=== PATIENT | female | born 1950 | race Caucasian/White ===

== ENCOUNTER 2018-03-21 16:51 | Inpatient (IN) | payer MEDICARE, OTHER ==
[~2018-03-21] VITALS: Ht 162.6 cm; Wt 91.6 kg
[~2018-03-21 16:51] MED LIST: ATOR20TA65 PO; CETI-290 PO; DOCU50LI12 PO; FAMO10TA99 PO; HYDR-4069 PO; LISI-660 PO; MIRT7.5T11 PO; PANT40TA25 PO; RIVA10 PO
[2018-03-21 17:17] VITALS: BP 154/73
[2018-03-21] MEDS ORDERED: ACETAMINOPHEN 325 MG TABLET PO PRN (19:00)
[2018-03-21] MEDS ORDERED: IPRATROPIUM BROMIDE 0.5 MG/2.5 ML NEB SOLUTION NEB PRN (19:00)
[2018-03-21] MEDS ORDERED: ONDANSETRON HCL 4 MG/2 ML VIAL IVP PRN (19:00)
[2018-03-21] MEDS ORDERED: ALBUTEROL SULFATE 2.5 MG/0.5 ML NEB SOLUTION NEB PRN (19:00)
[2018-03-21] MEDS ORDERED: BISACODYL 10 MG RECTAL RECTAL SUPPOSITORY PR PRN (19:00)
[2018-03-21] MEDS ORDERED: MAGNESIUM HYDROXIDE SUSPENSION 30 ML UDCUP PO PRN (19:00)
[2018-03-21] MEDS ORDERED: ZOLPIDEM TARTRATE 5 MG TABLET PO PRN (19:00)
[2018-03-21] MEDS ORDERED: MORPHINE SULFATE 4 MG/ML SYRINGE IVP PRN (19:00)
[2018-03-21] MEDS ORDERED: BARIUM SULFATE 0.1% SUSPENSION 450 ML BOTTLE ONE (19:30)
[2018-03-21 19:38] VITALS: BP 116/61
[2018-03-21 19:44] LABS: BASOPHILS % (AUTO) 1.1 % (0.0-2.0); EOSINOPHILS % (AUTO) 2.6 % (1.0-6.0); HEMATOCRIT 40.6 % (36-46); LYMPHOCYTES # (AUTO) 3.5 K/uL (1.0-4.8); MEAN CORPUSCULAR HEMOGLOBIN 31.4 pg (26.0-34.0); MEAN CORPUSCULAR HGB CONC 34.4 G/dL (31.0-37.0); MEAN CORPUSCULAR VOLUME 91 fL (80-100); MONOCYTES # (AUTO) 1.1 K/uL (0.1-1.0); MONOCYTES % (AUTO) 7.7 % (2.0-9.0); NEUTROPHILS # (AUTO) 8.8 K/uL (1.8-7.7); NEUTROPHILS % (AUTO) 63.6 % (40.0-70.0); PLATELET COUNT (AUTO) 297 K/uL (150-450); RED BLOOD CELL COUNT(AUTO) 4.45 MIL/uL (4.00-5.20); RED CELL DISTRIBUTION WIDTH 13.5 % (11.5-14.5)
[2018-03-21 19:50] LABS: ANION GAP 9 mmol/L (8-16); CALCIUM, TOTAL 8.8 mg/dL (8.8-10.5); CARBON DIOXIDE 26 mmol/L (22-29); CHLORIDE 105 mmol/L (98-107); CREATININE 0.92 mg/dL (0.60-1.30); GLOMERULAR FILTR. RATE CALC > 60 mL/min (>60); GLUCOSE,RANDOM 122 mg/dL (70-110); POTASSIUM 3.2 mmol/L (3.5-5.1); SODIUM SERUM 140 mmol/L (136-145); UREA NITROGEN, BLOOD 20 mg/dL (7-18)
[2018-03-21 19:55] LABS: ALANINE AMINOTRANSFERASE 29 U/L (12-78); ALBUMIN 3.4 g/dL (3.4-5.0); ALKALINE PHOSPHATASE 124 U/L (46-116); ASPARTATE AMINOTRANSFERASE 19 U/L (15-37); BILIRUBIN,TOTAL 0.5 mg/dL (0.1-1.0); TOTAL PROTEIN, SERUM 6.9 g/dL (6.4-8.2)
[2018-03-21] MEDS: DOCUSATE SODIUM 100 MG CAPSULE PO SCH (20:26)
[2018-03-21] MEDS: MIRTAZAPINE 15 MG TABLET PO SCH (20:26)
[2018-03-21 23:54] VITALS: BP 136/68
[2018-03-22] MEDS ORDERED: HEPARIN SODIUM,PORCINE 5,000 UNITS/ML VIAL SQ SCH
[2018-03-22] MEDS ORDERED: IOVERSOL 320 MG/ML 50 ML VIAL ONE (01:47)
[2018-03-22] MEDS ORDERED: SODIUM CHLORIDE 0.9% 100 ML ONE (01:47)
[2018-03-22] MEDS ORDERED: IOVERSOL 320 MG/ML 100 ML VIAL ONE (01:47)
[2018-03-22 04:45] VITALS: BP 112/82
[2018-03-22] MEDS: PANTOPRAZOLE SODIUM 40 MG DR TABLET PO SCH (05:58)
[2018-03-22 06:54] LABS: BASOPHILS % (AUTO) 0.7 % (0.0-2.0); EOSINOPHILS % (AUTO) 3.7 % (1.0-6.0); HEMATOCRIT 39.8 % (36-46); HEMOGLOBIN 13.7 g/dL (12.0-16.0); LYMPHOCYTES # (AUTO) 3.1 K/uL (1.0-4.8); MEAN CORPUSCULAR HEMOGLOBIN 31.6 pg (26.0-34.0); MEAN CORPUSCULAR HGB CONC 34.5 G/dL (31.0-37.0); MEAN CORPUSCULAR VOLUME 92 fL (80-100); MONOCYTES # (AUTO) 1.3 K/uL (0.1-1.0); MONOCYTES % (AUTO) 11.4 % (2.0-9.0); NEUTROPHILS # (AUTO) 6.6 K/uL (1.8-7.7); NEUTROPHILS % (AUTO) 57.2 % (40.0-70.0); PLATELET COUNT (AUTO) 268 K/uL (150-450); RED BLOOD CELL COUNT(AUTO) 4.35 MIL/uL (4.00-5.20); RED CELL DISTRIBUTION WIDTH 13.8 % (11.5-14.5)
[2018-03-22 07:08] LABS: ANION GAP 9 mmol/L (8-16); CALCIUM, TOTAL 8.4 mg/dL (8.8-10.5); CARBON DIOXIDE 24 mmol/L (22-29); CHLORIDE 108 mmol/L (98-107); CREATININE 0.67 mg/dL (0.60-1.30); GLOMERULAR FILTR. RATE CALC > 60 mL/min (>60); GLUCOSE,RANDOM 86 mg/dL (70-110); POTASSIUM 3.3 mmol/L (3.5-5.1); SODIUM SERUM 141 mmol/L (136-145); UREA NITROGEN, BLOOD 14 mg/dL (7-18)
[2018-03-22] MEDS: LISINOPRIL 5 MG TABLET PO SCH (07:50)
[2018-03-22] MEDS: FAMOTIDINE 20 MG TABLET PO SCH (07:50)
[2018-03-22] MEDS: ATORVASTATIN CALCIUM 20 MG TABLET PO SCH (07:50)
[2018-03-22] MEDS: DOCUSATE SODIUM 100 MG CAPSULE PO SCH ×3 (07:50→21:02)
[2018-03-22] MEDS: CETIRIZINE HCL 10 MG TABLET PO SCH (07:51)
[2018-03-22 07:54] VITALS: BP 156/53
[2018-03-22] MEDS ORDERED: PANTOPRAZOLE SODIUM 40 MG/VIAL IVP SCH (09:00)
[2018-03-22 11:39] VITALS: BP 111/67
[2018-03-22] MEDS: HYDROCODONE/ACETAMINOPHEN 5-325 MG TABLET PO PRN ×2 (15:49→21:05)
[2018-03-22 16:21] VITALS: BP 141/67
[2018-03-22 17:48] LABS: APPEARANCE,URINE CLEAR (CLEAR); BILIRUBIN,URINE NEGATIVE (NEGATIVE); GLUCOSE, URINE (UA) NEGATIVE (NEGATIVE); KETONES,URINE NEGATIVE (NEGATIVE); LEUKOCYTE ESTERASE ,URINE NEGATIVE (NEGATIVE); NITRATE,URINE NEGATIVE (NEGATIVE); OCCULT BLOOD,URINE MODERATE (NEGATIVE); PH,URINE 5.5 (5.0-8.0); PROTEIN,URINE NEGATIVE (NEGATIVE); UROBILINOGEN,URINE 0.2 mg/dL (<=1.0)
[2018-03-22 17:51] LABS: BACTERIA,URINE Rare /HPF (None Seen); SQUAMOUS EPITHELIAL CELL,UR Few /LPF (None Seen)
[2018-03-22] MEDS ORDERED: POTASSIUM CHLORIDE 20 MEQ ER TABLET PO PRN (18:00)
[2018-03-22] MEDS ORDERED: MAGNESIUM SULFATE 2 GM in DEXTROSE 5%-WATER 50 ML IV PRN (18:00)
[2018-03-22] MEDS ORDERED: POTASSIUM CHL 10 MEQ/WATER 50 ML IV PRN (18:00)
[2018-03-22] MEDS ORDERED: MAGNESIUM OXIDE 400 MG TABLET PO PRN (18:00)
[2018-03-22] MEDS ORDERED: MAGNESIUM SULFATE 4 GM/WATER 100 ML IV PRN (18:00)
[2018-03-22] MEDS: RIVAROXABAN 10 MG TABLET PO SCH (18:11)
[2018-03-22 19:12] LABS: ALBUMIN 3.1 g/dL (3.4-5.0)
[2018-03-22 19:40] VITALS: BP 109/55
[2018-03-22] MEDS: MIRTAZAPINE 15 MG TABLET PO SCH (21:02)
[2018-03-22 23:32] VITALS: BP 108/53
[2018-03-23 04:46] VITALS: BP 108/60
[2018-03-23] MEDS: PANTOPRAZOLE SODIUM 40 MG DR TABLET PO SCH (06:42)
[2018-03-23 07:06] LABS: MAGNESIUM 1.8 mg/dL (1.80-2.40)
[2018-03-23 07:20] VITALS: BP 104/50
[2018-03-23] MEDS: ATORVASTATIN CALCIUM 20 MG TABLET PO SCH (08:49)
[2018-03-23] MEDS: LISINOPRIL 5 MG TABLET PO SCH (08:49)
[2018-03-23] MEDS: FAMOTIDINE 20 MG TABLET PO SCH (08:49)
[2018-03-23] MEDS: CETIRIZINE HCL 10 MG TABLET PO SCH (08:49)
[2018-03-23] MEDS: HYDROCODONE/ACETAMINOPHEN 5-325 MG TABLET PO PRN ×3 (08:49→20:37)
[2018-03-23] MEDS: DOCUSATE SODIUM 100 MG CAPSULE PO SCH ×2 (08:50→20:43)
[2018-03-23 11:28] VITALS: BP 101/58
[2018-03-23 16:28] VITALS: BP 101/51
[2018-03-23] MEDS: RIVAROXABAN 10 MG TABLET PO SCH (18:19)
[2018-03-23 20:01] VITALS: BP 131/49
[2018-03-23] MEDS: MIRTAZAPINE 15 MG TABLET PO SCH (20:37)
[2018-03-23 23:25] VITALS: BP 111/65
[2018-03-24 03:20] VITALS: BP 121/56
[2018-03-24] MEDS: PANTOPRAZOLE SODIUM 40 MG DR TABLET PO SCH (06:17)
[2018-03-24 08:00] VITALS: BP 145/75
[2018-03-24] MEDS: LISINOPRIL 5 MG TABLET PO SCH (08:13)
[2018-03-24] MEDS: FAMOTIDINE 20 MG TABLET PO SCH (08:13)
[2018-03-24] MEDS: DOCUSATE SODIUM 100 MG CAPSULE PO SCH ×2 (08:13→20:29)
[2018-03-24] MEDS: ATORVASTATIN CALCIUM 20 MG TABLET PO SCH (08:13)
[2018-03-24] MEDS: CETIRIZINE HCL 10 MG TABLET PO SCH (08:14)
[2018-03-24] MEDS: HYDROCODONE/ACETAMINOPHEN 5-325 MG TABLET PO PRN ×2 (11:31→20:30)
[2018-03-24 11:42] VITALS: BP 128/50
[2018-03-24 15:54] VITALS: BP 107/41
[2018-03-24] MEDS: RIVAROXABAN 10 MG TABLET PO SCH (17:50)
[2018-03-24 19:35] VITALS: BP 104/55
[2018-03-24] MEDS: MIRTAZAPINE 15 MG TABLET PO SCH (20:31)
[2018-03-24 23:37] VITALS: BP 120/69
[2018-03-25 04:48] VITALS: BP 111/57
[2018-03-25] MEDS: PANTOPRAZOLE SODIUM 40 MG DR TABLET PO SCH (06:38)
[2018-03-25 07:37] VITALS: BP 135/70
[2018-03-25] MEDS: FAMOTIDINE 20 MG TABLET PO SCH (08:32)
[2018-03-25] MEDS: CETIRIZINE HCL 10 MG TABLET PO SCH (08:32)
[2018-03-25] MEDS: LISINOPRIL 5 MG TABLET PO SCH (08:32)
[2018-03-25] MEDS: ATORVASTATIN CALCIUM 20 MG TABLET PO SCH (08:32)
[2018-03-25] MEDS: DOCUSATE SODIUM 100 MG CAPSULE PO SCH ×2 (08:35→21:00)
[2018-03-25 09:29] LABS: EOSINOPHILS % (AUTO) 3.6 % (1.0-6.0); HEMATOCRIT 44.8 % (36-46); HEMOGLOBIN 15.3 g/dL (12.0-16.0); LYMPHOCYTES # (AUTO) 2.6 K/uL (1.0-4.8); MEAN CORPUSCULAR HEMOGLOBIN 31.5 pg (26.0-34.0); MEAN CORPUSCULAR HGB CONC 34.2 G/dL (31.0-37.0); MEAN CORPUSCULAR VOLUME 92 fL (80-100); MONOCYTES # (AUTO) 0.9 K/uL (0.1-1.0); MONOCYTES % (AUTO) 8.7 % (2.0-9.0); NEUTROPHILS # (AUTO) 6.8 K/uL (1.8-7.7); NEUTROPHILS % (AUTO) 62.7 % (40.0-70.0); PLATELET COUNT (AUTO) 310 K/uL (150-450); RED BLOOD CELL COUNT(AUTO) 4.86 MIL/uL (4.00-5.20); RED CELL DISTRIBUTION WIDTH 13.7 % (11.5-14.5)
[2018-03-25 09:36] LABS: ANION GAP 7 mmol/L (8-16); CARBON DIOXIDE 29 mmol/L (22-29); CHLORIDE 103 mmol/L (98-107); CREATININE 0.87 mg/dL (0.60-1.30); GLOMERULAR FILTR. RATE CALC > 60 mL/min (>60); GLUCOSE,RANDOM 89 mg/dL (70-110); POTASSIUM 3.7 mmol/L (3.5-5.1); SODIUM SERUM 139 mmol/L (136-145); UREA NITROGEN, BLOOD 19 mg/dL (7-18)
[2018-03-25 11:55] LABS: THYROID STIMULATING HORMONE 5.16 uIU/mL (0.36-3.74)
[2018-03-25 16:05] VITALS: BP 147/75
[2018-03-25] MEDS: RIVAROXABAN 10 MG TABLET PO SCH (18:21)
[2018-03-25] MEDS: MIRTAZAPINE 15 MG TABLET PO SCH (21:00)
[2018-03-26 05:54] VITALS: BP 128/53
[2018-03-26] MEDS: PANTOPRAZOLE SODIUM 40 MG DR TABLET PO SCH (05:56)
[2018-03-26 07:52] VITALS: BP 108/63
[2018-03-26] MEDS: FAMOTIDINE 20 MG TABLET PO SCH (09:00)
[2018-03-26] MEDS: LISINOPRIL 5 MG TABLET PO SCH (09:00)
[2018-03-26] MEDS: DOCUSATE SODIUM 100 MG CAPSULE PO SCH ×2 (09:00→21:00)
[2018-03-26] MEDS: CETIRIZINE HCL 10 MG TABLET PO SCH (09:00)
[2018-03-26] MEDS: ATORVASTATIN CALCIUM 20 MG TABLET PO SCH (09:00)
[2018-03-26 11:35] VITALS: BP 123/67
[2018-03-26 16:11] VITALS: BP 135/74
[2018-03-26] MEDS: RIVAROXABAN 10 MG TABLET PO SCH (18:00)
[2018-03-26 19:50] VITALS: BP 130/70
[2018-03-27 00:30] VITALS: BP 129/61
[2018-03-27 05:06] VITALS: BP 124/63
[2018-03-27] MEDS: PANTOPRAZOLE SODIUM 40 MG DR TABLET PO SCH (06:29)
[2018-03-27 07:15] VITALS: BP 122/62
[2018-03-27] MEDS: FAMOTIDINE 20 MG TABLET PO SCH (09:00)
[2018-03-27] MEDS: LISINOPRIL 5 MG TABLET PO SCH (09:00)
[2018-03-27] MEDS: ATORVASTATIN CALCIUM 20 MG TABLET PO SCH (09:00)
[2018-03-27] MEDS: DOCUSATE SODIUM 100 MG CAPSULE PO SCH (09:00)
[2018-03-27 11:23] VITALS: BP 121/70
== END 2018-03-27 15:15 | DRG 392 ==
LOC: 6N 17:00 → 5S 03-25 15:50
PROVIDERS: ADMIT Hospitalist; ATTEND Hospitalist
DX: R10.2 Pelvic and perineal pain (principal); F11.20 Opioid dependence, uncomplicated; I11.9 Hypertensive heart disease without heart failure; I69.320 Aphasia following cerebral infarction; J98.11 Atelectasis; R00.1 Bradycardia, unspecified; N28.89 Other specified disorders of kidney and ureter; K21.9 Gastro-esophageal reflux disease without esophagitis; M79.7 Fibromyalgia; G89.29 Other chronic pain; E78.5 Hyperlipidemia, unspecified; R13.0 Aphagia; W19.XXXA Unspecified fall, initial encounter; J43.9 Emphysema, unspecified; E55.9 Vitamin D deficiency, unspecified; E78.00 Pure hypercholesterolemia, unspecified; F17.210 Nicotine dependence, cigarettes, uncomplicated; Z90.49 Acquired absence of other specified parts of digestive tract; Z90.710 Acquired absence of both cervix and uterus; Z90.721 Acquired absence of ovaries, unilateral; Z79.899 Other long term (current) drug therapy; Y93.89 Activity, other specified; Y92.89 Other specified places as the place of occurrence of the external cause; Y99.8 Other external cause status
CPT/HCPCS: 73521; 74177; 76770; 83735; 84132; 84439; 84443; 93005; 93306; 97116; 97162; J7050

== ENCOUNTER 2020-09-18 17:29 | Emergency (ER) | payer MEDICARE, OTHER ==
[~2020-09-18] VITALS: Ht 175.3 cm; Wt 68.2 kg
[~2020-09-18 17:29] MED LIST changes: -CETI-290 PO; +CETI-450 PO; +PANT-31 PO; -PANT40TA25 PO
[2020-09-18] MEDS ORDERED: PERTUSS(ACELL),DIPH,TET VAC/PF 0.5 ML VIAL IM ONE (20:00)
[2020-09-19 02:00] VITALS: BP 132/74
== END 2020-09-19 03:00 | disposition home or self-care (01) ==
LOC: EMS 17:29
DX: S80.11XA Contusion of right lower leg, initial encounter (principal); R41.0 Disorientation, unspecified; J44.9 Chronic obstructive pulmonary disease, unspecified; M79.7 Fibromyalgia; K21.9 Gastro-esophageal reflux disease without esophagitis; E78.00 Pure hypercholesterolemia, unspecified; F17.210 Nicotine dependence, cigarettes, uncomplicated; I10 Essential (primary) hypertension; Z86.73 Personal history of transient ischemic attack (TIA), and cerebral infarction without residual deficits; Z90.49 Acquired absence of other specified parts of digestive tract; Z90.710 Acquired absence of both cervix and uterus; Z79.899 Other long term (current) drug therapy; W18.39XA Other fall on same level, initial encounter; Y93.89 Activity, other specified; Y92.89 Other specified places as the place of occurrence of the external cause; Y99.8 Other external cause status
CPT/HCPCS: 90471; 90715

== ENCOUNTER 2022-08-14 13:53 | Emergency (ER) | payer MEDICARE, OTHER ==
[~2022-08-14] VITALS: Ht 160 cm; Wt 72.2 kg
[~2022-08-14 13:53] MED LIST changes: -LISI-660 PO; +LISI-892 PO; -RIVA10 PO; +RIVA10TA PO
[2022-08-14] MEDS ORDERED: SODIUM CHLORIDE 0.9% 500 ML IV ONE (14:15)
[2022-08-14 15:35] LABS: BASOPHILS % (AUTO) 0.8 % (0.0-2.0); EOSINOPHILS % (AUTO) 0.9 % (1.0-6.0); LYMPHOCYTES # (AUTO) 1.7 K/uL (1.0-4.8); LYMPHOCYTES % (AUTO) 19.9 % (22.0-44.0); MEAN CORPUSCULAR HEMOGLOBIN 30.9 pg (26.0-34.0); MEAN CORPUSCULAR HGB CONC 32.6 G/dL (31.0-37.0); MEAN CORPUSCULAR VOLUME 95 fL (80-100); MONOCYTES # (AUTO) 0.7 K/uL (0.1-1.0); MONOCYTES % (AUTO) 8.6 % (2.0-9.0); NEUTROPHILS # (AUTO) 6.1 K/uL (1.8-7.7); NEUTROPHILS % (AUTO) 69.8 % (40.0-70.0); PLATELET COUNT (AUTO) 190 K/uL (150-450); RED BLOOD CELL COUNT(AUTO) 4.55 MIL/uL (4.00-5.20); RED CELL DISTRIBUTION WIDTH 13.6 % (11.5-14.5)
[2022-08-14 15:45] LABS: ANION GAP 8 mmol/L (8-16); CALCIUM, TOTAL 9.2 mg/dL (8.8-10.5); CARBON DIOXIDE 27 mmol/L (22-29); CHLORIDE 107 mmol/L (98-107); CREATININE 0.61 mg/dL (0.60-1.30); GLUCOSE,RANDOM 77 mg/dL (70-110); POTASSIUM 3.8 mmol/L (3.5-5.1); SODIUM SERUM 142 mmol/L (136-145); UREA NITROGEN, BLOOD 9 mg/dL (7-18)
[2022-08-14 15:46] LABS: GLOMERULAR FILTR. RATE CALC > 60 mL/min (>60)
[2022-08-14 15:51] LABS: ALANINE AMINOTRANSFERASE 8 U/L (12-78); ALBUMIN 2.9 g/dL (3.4-5.0); ALKALINE PHOSPHATASE 77 U/L (46-116); ASPARTATE AMINOTRANSFERASE 12 U/L (15-37); BILIRUBIN,TOTAL 0.4 mg/dL (0.1-1.0); TOTAL PROTEIN, SERUM 6.2 g/dL (6.4-8.2)
[2022-08-14 16:12] LABS: APPEARANCE,URINE HAZY (CLEAR); BILIRUBIN,URINE NEGATIVE (NEGATIVE); GLUCOSE, URINE (UA) NEGATIVE (NEGATIVE); KETONES,URINE NEGATIVE (NEGATIVE); LEUKOCYTE ESTERASE ,URINE TRACE (NEGATIVE); NITRATE,URINE POSITIVE (NEGATIVE); OCCULT BLOOD,URINE SMALL (NEGATIVE); PH,URINE 6.5 (5.0-8.0); PROTEIN,URINE NEGATIVE (NEGATIVE); SPECIFIC GRAVITIY, URINE 1.015 (1.003-1.030); UROBILINOGEN,URINE <=1.0 mg/dL (<=1.0)
[2022-08-14 16:29] LABS: BACTERIA,URINE Many /HPF (None Seen)
[2022-08-14 16:30] LABS: SQUAMOUS EPITHELIAL CELL,UR None Seen /LPF (None Seen)
[2022-08-14] MEDS ORDERED: CEPH-558 PO (16:45)
[2022-08-14] MEDS ORDERED: CefTRIAXone SODIUM 500 MG in DEXTROSE 5%-WATER 50 ML IV ONE (16:45)
[2022-08-14] MEDS ORDERED: ACETAMINOPHEN 325 MG TABLET PO ONE (17:45)
[2022-08-14 18:00] VITALS: BP 131/96
== END 2022-08-14 18:24 | disposition home or self-care (01) ==
LOC: EMS 13:58
DX: N39.0 Urinary tract infection, site not specified (principal); J44.9 Chronic obstructive pulmonary disease, unspecified; M79.7 Fibromyalgia; F17.210 Nicotine dependence, cigarettes, uncomplicated; E78.00 Pure hypercholesterolemia, unspecified; I10 Essential (primary) hypertension; Z90.49 Acquired absence of other specified parts of digestive tract; Z90.710 Acquired absence of both cervix and uterus; Z90.721 Acquired absence of ovaries, unilateral
CPT/HCPCS: 99284; 74176; 96365; 96361; 80053; 81001; 85025; 36415; 87086; 87186; J0696; J7060; J7040

== ENCOUNTER 2022-08-26 10:06 | Inpatient (IN) | payer MEDICARE, OTHER ==
[~2022-08-26] VITALS: Ht 160 cm; Wt 70.4 kg
[~2022-08-26 10:06] MED LIST changes: +CEPH-558 PO; -CETI-450 PO
[2022-08-26 11:51] LABS: BASOPHILS % (AUTO) 1.1 % (0.0-2.0); EOSINOPHILS % (AUTO) 2.2 % (1.0-6.0); HEMATOCRIT 43.8 % (36-46); HEMOGLOBIN 14.6 g/dL (12.0-16.0); LYMPHOCYTES # (AUTO) 2.1 K/uL (1.0-4.8); MEAN CORPUSCULAR HEMOGLOBIN 31.2 pg (26.0-34.0); MEAN CORPUSCULAR HGB CONC 33.2 G/dL (31.0-37.0); MEAN CORPUSCULAR VOLUME 94 fL (80-100); MONOCYTES # (AUTO) 0.8 K/uL (0.1-1.0); MONOCYTES % (AUTO) 9.5 % (2.0-9.0); NEUTROPHILS # (AUTO) 5.2 K/uL (1.8-7.7); NEUTROPHILS % (AUTO) 62.2 % (40.0-70.0); PLATELET COUNT (AUTO) 235 K/uL (150-450); RED BLOOD CELL COUNT(AUTO) 4.67 MIL/uL (4.00-5.20); RED CELL DISTRIBUTION WIDTH 14.5 % (11.5-14.5)
[2022-08-26 12:07] LABS: PROTHROMBIN TIME 10.7 SEC (9.4-11.6)
[2022-08-26 12:09] LABS: ALANINE AMINOTRANSFERASE 8 U/L (12-78); ALBUMIN 3.3 g/dL (3.4-5.0); ALKALINE PHOSPHATASE 88 U/L (46-116); ANION GAP 8 mmol/L (8-16); ASPARTATE AMINOTRANSFERASE 12 U/L (15-37); BILIRUBIN,TOTAL 0.7 mg/dL (0.1-1.0); CALCIUM, TOTAL 9.2 mg/dL (8.8-10.5); CARBON DIOXIDE 27 mmol/L (22-29); CHLORIDE 106 mmol/L (98-107); CREATININE 0.69 mg/dL (0.60-1.30); GLUCOSE,RANDOM 82 mg/dL (70-110); LIPASE 82 U/L (73-393); SODIUM SERUM 141 mmol/L (136-145); UREA NITROGEN, BLOOD 10 mg/dL (7-18)
[2022-08-26 12:11] LABS: LACTIC ACID 1.1 mmol/L (0.4-2.0)
[2022-08-26 12:12] LABS: GLOMERULAR FILTR. RATE CALC > 60 mL/min (>60); POTASSIUM 2.9 mmol/L (3.5-5.1)
[2022-08-26] MEDS ORDERED: POTASSIUM CHLORIDE 20 MEQ ER TABLET PO ONE (12:15)
[2022-08-26 12:40] LABS: APPEARANCE,URINE CLEAR (CLEAR); BILIRUBIN,URINE NEGATIVE (NEGATIVE); GLUCOSE, URINE (UA) NEGATIVE (NEGATIVE); KETONES,URINE TRACE mg/dL (NEGATIVE); LEUKOCYTE ESTERASE ,URINE NEGATIVE (NEGATIVE); NITRATE,URINE NEGATIVE (NEGATIVE); OCCULT BLOOD,URINE SMALL (NEGATIVE); PH,URINE 6.5 (5.0-8.0); PROTEIN,URINE TRACE mg/dL (NEGATIVE); SPECIFIC GRAVITIY, URINE 1.016 (1.003-1.030); UROBILINOGEN,URINE <=1.0 mg/dL (<=1.0)
[2022-08-26 12:52] LABS: BACTERIA,URINE None Seen /HPF (None Seen); SQUAMOUS EPITHELIAL CELL,UR Few /LPF (None Seen); WBC,URINE None Seen /HPF (0-5)
[2022-08-26] MEDS ORDERED: IOHEXOL 350 MG/ML 100 ML VIAL ONE (13:13)
[2022-08-26] MEDS ORDERED: SODIUM CHLORIDE 0.9% 100 ML ONE (13:13)
[2022-08-26] MEDS ORDERED: SODIUM CHLORIDE 0.9% 500 ML IV ONE (16:15)
[2022-08-26] MEDS ORDERED: ACETAMINOPHEN 325 MG TABLET PO ONE (17:00)
[2022-08-26] MEDS ORDERED: ACETAMINOPHEN 325 MG TABLET PO PRN ×2 (17:15→22:00)
[2022-08-26] MEDS ORDERED: ONDANSETRON HCL 4 MG/2 ML VIAL IVP PRN ×2 (17:15→22:00)
[2022-08-26] MEDS ORDERED: 0.9% SODIUM CHLORIDE 10 ML SYRINGE IVP PRN (17:15)
[2022-08-26] MEDS ORDERED: CEPH-558 PO (17:23)
[2022-08-26] MEDS ORDERED: BUPR300F3 BU (17:23)
[2022-08-26] MEDS ORDERED: ERGO500054 PO (17:23)
[2022-08-26] MEDS ORDERED: MIRT-89 PO (17:24)
[2022-08-26] MEDS ORDERED: ATOR40TA28 PO (17:24)
[2022-08-26] MEDS ORDERED: LORazepam 2 MG TABLET PO ONE (19:15)
[2022-08-26 20:53] LABS: COVID AG,FIA SOURCE NASAL SWAB
[2022-08-26] MEDS ORDERED: MAGNESIUM HYDROXIDE SUSPENSION 30 ML UDCUP PO PRN (22:00)
[2022-08-26] MEDS ORDERED: IPRATROPIUM BROMIDE 0.5 MG/2.5 ML NEB SOLUTION NEB PRN (22:00)
[2022-08-26] MEDS ORDERED: ZOLPIDEM TARTRATE 5 MG TABLET PO PRN (22:00)
[2022-08-26] MEDS ORDERED: BISACODYL 10 MG RECTAL RECTAL SUPPOSITORY PR PRN (22:00)
[2022-08-26] MEDS ORDERED: ALBUTEROL SULFATE 2.5 MG/0.5 ML NEB SOLUTION NEB PRN (22:00)
[2022-08-27 03:45] VITALS: BP 118/62
[2022-08-27] MEDS: DOCUSATE SODIUM 100 MG/10 ML LIQUID UDCUP PO SCH (08:36)
[2022-08-27] MEDS: ATORVASTATIN CALCIUM 40 MG TABLET PO SCH (08:36)
[2022-08-27] MEDS: PANTOPRAZOLE SODIUM 40 MG DR TABLET PO SCH (08:36)
[2022-08-27] MEDS: HYDROCODONE/ACETAMINOPHEN 5-325 MG TABLET PO PRN ×2 (08:38→13:03)
[2022-08-27] MEDS ORDERED: PANTOPRAZOLE SODIUM 40 MG DR TABLET PO SCH (09:00)
[2022-08-27 11:01] VITALS: BP 148/68
[2022-08-27] MEDS: CEPHALEXIN MONOHYDRATE 500 MG CAPSULE PO SCH ×3 (11:15→20:58)
[2022-08-27] MEDS ORDERED: HYDROCODONE/ACETAMINOPHEN 5-325 MG TABLET ONE (12:59)
[2022-08-27 16:43] VITALS: BP 115/54
[2022-08-27] MEDS: RIVAROXABAN 10 MG TABLET PO SCH (17:35)
[2022-08-27] MEDS: MORPHINE SULFATE 2 MG/ML SYRINGE IVP PRN (17:58)
[2022-08-27 20:41] VITALS: BP 113/60
[2022-08-27] MEDS: MIRTAZAPINE 15 MG TABLET PO SCH (20:58)
[2022-08-28 05:09] VITALS: BP 142/66
[2022-08-28] MEDS: PANTOPRAZOLE SODIUM 40 MG DR TABLET PO SCH (06:23)
[2022-08-28 07:21] VITALS: BP 138/68
[2022-08-28] MEDS: CEPHALEXIN MONOHYDRATE 500 MG CAPSULE PO SCH ×3 (08:02→20:02)
[2022-08-28] MEDS: ATORVASTATIN CALCIUM 40 MG TABLET PO SCH (08:02)
[2022-08-28] MEDS: DOCUSATE SODIUM 100 MG/10 ML LIQUID UDCUP PO SCH (08:02)
[2022-08-28] MEDS: MORPHINE SULFATE 2 MG/ML SYRINGE IVP PRN ×3 (08:03→17:37)
[2022-08-28] MEDS ORDERED: POTASSIUM CHLORIDE 20 MEQ ER TABLET PO PRN (10:30)
[2022-08-28] MEDS ORDERED: POTASSIUM CHL 10 MEQ/WATER 50 ML IV PRN (10:30)
[2022-08-28 13:33] LABS: BASOPHILS % (AUTO) 0.9 % (0.0-2.0); EOSINOPHILS % (AUTO) 3.2 % (1.0-6.0); HEMATOCRIT 45.7 % (36-46); HEMOGLOBIN 14.8 g/dL (12.0-16.0); LYMPHOCYTES % (AUTO) 28.6 % (22.0-44.0); MEAN CORPUSCULAR HGB CONC 32.4 G/dL (31.0-37.0); MEAN CORPUSCULAR VOLUME 96 fL (80-100); MONOCYTES # (AUTO) 1.1 K/uL (0.1-1.0); MONOCYTES % (AUTO) 10.3 % (2.0-9.0); PLATELET COUNT (AUTO) 255 K/uL (150-450); RED BLOOD CELL COUNT(AUTO) 4.77 MIL/uL (4.00-5.20); RED CELL DISTRIBUTION WIDTH 14.3 % (11.5-14.5)
[2022-08-28 13:46] LABS: ANION GAP 7 mmol/L (8-16); CALCIUM, TOTAL 8.9 mg/dL (8.8-10.5); CARBON DIOXIDE 27 mmol/L (22-29); CHLORIDE 108 mmol/L (98-107); CREATININE 0.79 mg/dL (0.60-1.30); GLUCOSE,RANDOM 89 mg/dL (70-110); POTASSIUM 3.2 mmol/L (3.5-5.1); SODIUM SERUM 142 mmol/L (136-145); UREA NITROGEN, BLOOD 18 mg/dL (7-18)
[2022-08-28 13:48] LABS: GLOMERULAR FILTR. RATE CALC > 60 mL/min (>60)
[2022-08-28 13:52] LABS: ALANINE AMINOTRANSFERASE 8 U/L (12-78); ALBUMIN 2.8 g/dL (3.4-5.0); ALKALINE PHOSPHATASE 83 U/L (46-116); ASPARTATE AMINOTRANSFERASE 14 U/L (15-37); BILIRUBIN,TOTAL 0.5 mg/dL (0.1-1.0); TOTAL PROTEIN, SERUM 6.1 g/dL (6.4-8.2)
[2022-08-28 15:10] VITALS: BP 123/71
[2022-08-28] MEDS: RIVAROXABAN 10 MG TABLET PO SCH (17:37)
[2022-08-28 19:50] VITALS: BP 125/74
[2022-08-28] MEDS: HYDROCODONE/ACETAMINOPHEN 5-325 MG TABLET PO PRN (20:02)
[2022-08-28] MEDS: MIRTAZAPINE 15 MG TABLET PO SCH (20:02)
[2022-08-29] MEDS: HYDROCODONE/ACETAMINOPHEN 5-325 MG TABLET PO PRN ×2 (01:53→08:47)
[2022-08-29 04:30] VITALS: BP 149/69
[2022-08-29] MEDS: PANTOPRAZOLE SODIUM 40 MG DR TABLET PO SCH (07:00)
[2022-08-29 07:47] VITALS: BP 177/67
[2022-08-29] MEDS: ATORVASTATIN CALCIUM 40 MG TABLET PO SCH (08:45)
[2022-08-29] MEDS: DOCUSATE SODIUM 100 MG/10 ML LIQUID UDCUP PO SCH ×2 (08:45→08:51)
[2022-08-29] MEDS: CEPHALEXIN MONOHYDRATE 500 MG CAPSULE PO SCH ×2 (08:45→16:26)
[2022-08-29] MEDS ORDERED: LOSARTAN POTASSIUM 50 MG TABLET PO ONE (13:00)
[2022-08-29 15:38] VITALS: BP 133/62
[2022-08-29] MEDS: RIVAROXABAN 10 MG TABLET PO SCH (17:45)
[2022-08-30] MEDS ORDERED: LOSARTAN POTASSIUM 25 MG TABLET PO SCH (09:00)
[2022-09-02] MEDS ORDERED: ERGOCALCIFEROL (VIT D2) 50,000 UNITS [1,250 MCG] CAPSULE PO SCH (09:00)
== END 2022-08-29 18:15 | disposition home or self-care (01) | DRG 699 ==
LOC: EMS 10:30 → 5S 08-27 02:27 → 6S 08-27 12:20
PROVIDERS: ADMIT Hospitalist; ATTEND Hospitalist
DX: N28.89 Other specified disorders of kidney and ureter (principal); I69.351 Hemiplegia and hemiparesis following cerebral infarction affecting right dominant side; J98.11 Atelectasis; E87.6 Hypokalemia; I10 Essential (primary) hypertension; E78.00 Pure hypercholesterolemia, unspecified; J44.9 Chronic obstructive pulmonary disease, unspecified; K44.9 Diaphragmatic hernia without obstruction or gangrene; Z20.822 Contact with and (suspected) exposure to COVID-19; K57.30 Diverticulosis of large intestine without perforation or abscess without bleeding; G89.29 Other chronic pain; K21.9 Gastro-esophageal reflux disease without esophagitis; M79.7 Fibromyalgia; Z87.891 Personal history of nicotine dependence; I69.320 Aphasia following cerebral infarction; Z90.49 Acquired absence of other specified parts of digestive tract; Z90.710 Acquired absence of both cervix and uterus; Z90.721 Acquired absence of ovaries, unilateral
CPT/HCPCS: 71045; 74177; 80053; 81001; 83605; 83690; 84132; 84484; 85025; 85610; 85730; 93005; 99285; J2270; J7040; J7050; Q9967; 36415-L1; 36415-TC

== ENCOUNTER 2024-03-16 14:20 | Emergency (ER) | payer MEDICARE, OTHER ==
[~2024-03-16] VITALS: Ht 177.8 cm; Wt 92.0 kg
[~2024-03-16 14:20] MED LIST changes: -ATOR20TA65 PO; +ATOR40TA28 PO; +BUPR300F3 BU; +ERGO500054 PO; -FAMO10TA99 PO; -HYDR-4069 PO; +MIRT-89 PO; -MIRT7.5T11 PO
[2024-03-16 14:44] VITALS: TEMP 98.3
[2024-03-16] MEDS ORDERED: TRAM50TA5 PO ×2 (16:40→16:44)
[2024-03-16] MEDS ORDERED: FAMO20 PO (16:40)
[2024-03-16] MEDS ORDERED: TRAZ-252 PO (16:40)
[2024-03-16] MEDS ORDERED: DICL112S3 TP (16:40)
[2024-03-16] MEDS ORDERED: ATOR20TA65 PO (16:40)
[2024-03-16] MEDS ORDERED: LISI10TA24 PO (16:40)
[2024-03-16] MEDS ORDERED: NYST60PO TP (16:40)
[2024-03-16] MEDS ORDERED: APIX2.5T PO (16:40)
[2024-03-16 16:45] VITALS: BP 155/71; PULSE 75; RESP 14
[2024-03-16] MEDS: TraMADol HCL 50 MG TABLET PO ONE (16:47)
== END 2024-03-16 17:01 | disposition home or self-care (01) ==
LOC: EMS 14:43
DX: M79.605 Pain in left leg (principal); M79.7 Fibromyalgia; I69.30 Unspecified sequelae of cerebral infarction; E78.00 Pure hypercholesterolemia, unspecified; I10 Essential (primary) hypertension; K21.9 Gastro-esophageal reflux disease without esophagitis; J44.9 Chronic obstructive pulmonary disease, unspecified; F17.210 Nicotine dependence, cigarettes, uncomplicated; Z90.49 Acquired absence of other specified parts of digestive tract; Z90.710 Acquired absence of both cervix and uterus
CPT/HCPCS: 99283

== ENCOUNTER 2025-06-02 11:37 | Emergency (ER) | payer MEDICARE, MEDICAID ==
[~2025-06-02] VITALS: Ht 180.3 cm; Wt 64.0 kg
[~2025-06-02 11:37] MED LIST changes: +APIX2.5T PO; +ATOR20TA65 PO; -ATOR40TA28 PO; -BUPR300F3 BU; -CEPH-558 PO; +DICL112S3 TP; -DOCU50LI12 PO; +FAMO20 PO; -LISI-892 PO; +LISI10TA24 PO; -MIRT-89 PO; +NYST60PO TP; -PANT-31 PO; -RIVA10TA PO; +TRAM50TA5 PO; +TRAZ-252 PO
[2025-06-02 11:48] VITALS: TEMP 98
[2025-06-02 12:00] VITALS: BP 118/58; PULSE 74; RESP 18; O2SAT 98
[2025-06-02] MEDS ORDERED: TRAM50TA5 PO (12:16)
== END 2025-06-02 12:27 | disposition home or self-care (01) ==
LOC: EMS 12:02
DX: G89.29 Other chronic pain (principal); M79.7 Fibromyalgia; J44.9 Chronic obstructive pulmonary disease, unspecified; K21.9 Gastro-esophageal reflux disease without esophagitis; E78.00 Pure hypercholesterolemia, unspecified; I10 Essential (primary) hypertension; Z90.721 Acquired absence of ovaries, unilateral; Z90.710 Acquired absence of both cervix and uterus; Z90.49 Acquired absence of other specified parts of digestive tract; Z86.73 Personal history of transient ischemic attack (TIA), and cerebral infarction without residual deficits; Z79.01 Long term (current) use of anticoagulants; Z76.0 Encounter for issue of repeat prescription; Z79.899 Other long term (current) drug therapy
CPT/HCPCS: 99281; Z7502